=== PATIENT | female | born 1945 | race Caucasian/White ===

== ENCOUNTER → 2024-09-30 12:31 | Outpatient (REF) | payer MEDICARE, BC, SELFPAY | LOC: RCS 12:31 | PROVIDERS: ATTENDING PHYSICIAN Internal Medicine Cardiovascular Disease; FAMILY PHYSICIAN Nurse Practitioner Family | DX: I35.0 Nonrheumatic aortic (valve) stenosis (principal) | CPT/HCPCS: 93306; Q9950 ==

== ENCOUNTER → 2024-10-24 10:22 | Outpatient (REF) | payer MEDICARE, BC, SELFPAY ==
[2024-10-24 11:13] LABS: Hematocrit 36.7 % (37.0-47.0); Hemoglobin 12.3 g/dL (12.0-16.0); Mean Corp Hgb Conc. 33.5 g/dL (33.0-37.0); Mean Corpuscular Volume 87.8 fL (81.0-99.0); Nucleated Red Blood Cells % 0 %; Platelet Count 187 10^3/uL (130-400); Red Cell Dist. Width 12.8 % (11.5-14.5)
[2024-10-24 11:41] LABS: ALT (SGPT) 22 U/L (0-35); AST (SGOT) 27 U/L (14-36); Albumin 4.5 g/dl (3.5-5.0); Alkaline Phosphatase 60 U/L (38-126); Blood Urea Nitrogen 27 mg/dl (7-17); Calcium 9.8 mg/dl (8.4-10.2); Carbon Dioxide 29 mmol/L (22-30); Chloride 103 mmol/L (98-107); Glucose 123 mg/dl (70-99); Potassium 5.2 mmol/L (3.5-5.1); Sodium 139 mmol/L (135-145); Total Protein 8.0 g/dl (6.3-8.2); eGFR 42.35
== END ==
LOC: SDSPAT 10:22
PROVIDERS: ATTENDING PHYSICIAN Student in an Organized Health Care Education/Training Program; FAMILY PHYSICIAN Nurse Practitioner Family; OTHER PHYSICIAN Internal Medicine Cardiovascular Disease
DX: R94.39 Abnormal result of other cardiovascular function study (principal)
CPT/HCPCS: 36415; 80053; 85025; 93005

== ENCOUNTER 2024-10-25 08:28 | Day surgery (SDC) | payer MEDICARE, BC, SELFPAY ==
[2024-10-24 10:34] VITALS: BMI 37.7
[2024-10-25] VITALS (18 sets, daily range): BP systolic 87–186; BP diastolic 50–148; BMI 37.6
[2024-10-25] MEDS: NSS 288 ML IV (09:49)
[2024-10-25 11:57] LABS: ACT-LR - POC 255 Seconds (116-155)
--- NOTE | 2024-10-25 21:47 | ITS.CL.PN ---
Motors And Controls Tester - Procedure Note
Procedure
Procedure Note:
CARDIAC CATHETERIZATION REPORT
Date of Procedure: 10/25/2024
Referring: Dr. Daniel Concepcion MD
Indication: typical angina, positive cardiac stress test, known CAD
PROCEDURE(S)
1. left heart catheterization
2. bypass graft angiography
2. coronary angiography
4. iFR RCA
ACCESS: 6F left radial artery (closure: radial band)
CATHETERS
1. 6F ALVIN
2. 6F JR4
3. 6F JL4
MODERATE SEDATION: 45 minutes of moderate sedation was utilized. An independent medical management trainer was present to assist with and help manage the patient's level of consciousness and physiologic status.
HEMODYNAMIC DATA
LV 200/19 (EDP 23, a-wave to 35) mmHg
AO 198/66 (mean 118) mmHg
CORONARY ANGIOGRAPHY
Dominance: right
LM: Large with mild disease.
LAD: Large vessel giving rise to a large diagonal branch. The vessel is ostially occluded and supplied via the YOUSSEF which gives brisk retrograde flow back to the proximal LAD and fills the diagonal branch. However there appears to be subtotal
occlusion just distal to the touchdown of the YOUSSEF and there is competitive flow visualized distally correlating to [id number] collaterals seen from the RPDA.
LCx: Moderate caliber vessel giving rise to several small marginal branches and a moderate caliber distal marginal/LPL. At the site of a previously severe stenosis just after the third OM there is now only mild nonobstructive disease. There is only
mild diffuse disease otherwise.
RCA: Large vessel giving rise to a large RPDA and large RPL branch. There is diffuse mild disease and a focal 40% stenosis in the proximal aspect of the RPL. There are faint right to left collaterals seen to the apical LAD. The vessel is generally
unchanged compared to angiography prior to bypass.
BYPASS GRAFT ANGIOGRAPHY:
YOUSSEF-LAD: the YOUSSEF is taken as a pedicle and forms an anastomosis with the mid-LAD. Provides brisk retrograde flow to the proximal LAD and large diagonal branch.
SVG-RPL: assumed occluded (button not definitively identified but no competitive flow seen in RCA system)
SVG-OM: occluded
iFR of RCA
An Omni wire was flushed and zeroed outside the body and then advanced to the ostial RCA. The wire introducer was removed and the catheter flushed with saline, after which pressure of the wire and guide were normalized. The wire was advanced to the
distal RPL branch and iFR recorded at 0.94. iFR pullback was performed noting a focal pattern at the RPL stenosis. On return to the ostial RCA, iFR appropriately normalized to ~1.0, confirming lack of wire drift.
RADIATION: dose 488 mGy; DAP 32 Gy*cm2; fluoroscopy time 14.9 min
CONCLUSIONS
1. Coronary artery disease status post bypass with occluded SVG to OM and SVG to RPL, patent YOUSSEF to LAD with apical LAD STORAGE ADMINISTRATOR with right to left collaterals. The distal LAD stenosis explains her positive apical stress test result. She otherwise does
not have obstructive coronary disease. Curiously, her previously severe circumflex lesion now appears healed, explaining why the graft may have subsequently gone down. Her RCA lesion which was grafted is hemodynamically nonsignificant, also
explaining graft failure.
2. Severe systemic hypertension with moderately elevated LV filling pressure
RECOMMENDATIONS
1. Aggressive medical therapy for angina. Percutaneous revascularization of the apical LAD STORAGE ADMINISTRATOR would be high risk given necessity of traversing the YOUSSEF and of marginal benefit given the small territory supplied. Will start imdur.
2. Aggressive secondary prevention of coronary artery disease
Copy to: Dr. Daniel Concepcion MD (showcase trimmer); Renee Castañeda NP (PCP)
Signed: Reggie Smart MD, PhD
== END 2024-10-25 16:30 | disposition home or self-care (01) ==
LOC: CATH 08:28
PROVIDERS: ATTENDING PHYSICIAN Student in an Organized Health Care Education/Training Program; FAMILY PHYSICIAN Nurse Practitioner Family; OTHER PHYSICIAN Internal Medicine Cardiovascular Disease
DX: I25.118 Atherosclerotic heart disease of native coronary artery with other forms of angina pectoris (principal); I25.718 Atherosclerosis of autologous vein coronary artery bypass graft(s) with other forms of angina pectoris; I10 Essential (primary) hypertension; I25.82 Chronic total occlusion of coronary artery
CPT/HCPCS: 93799; 99153; 99152; 85347; 93459; C1769; C1894; Q9967

== ENCOUNTER 2025-02-08 09:56 | Emergency (ER) | payer MEDICARE, BC, SELFPAY ==
[2025-02-08 09:57] VITALS: BP 149/61
--- NOTE | 2025-02-08 11:13 | ED.GENMED ---
History of Present Illness
General
Chief Complaint: DVT/Possible Blood Clot
Source: patient
Time Seen by Provider: 02/08/25 10:53
History of Present Illness
History of Present Illness:
79-year-old female with past medical history of atrial fibrillation, previous [place], COPD, GERD presenting to the emergency department for evaluation of dull aching sensation to the back of her left calf that she noticed yesterday, continued into today
prompting her to come to the ER. She denies any trauma, increased exercise or injury, focal weakness or numbness, chest pain or shortness of breath. No history of similar. She is on Eliquis due to her history of atrial fibrillation and reports
good compliance with this. No other concerns.
Past History
Past History
ED Past Medical History: CAD, GERD and Other (Hemorrhoids); Negative IDDM or NIDDM
ED Past Surgical History: Cardiac (Stents), Cholecystectomy, Gynecological and Orthopedic
Social History
Tobacco: Former smoker
Alcohol: Occasional
Drug: None
Personal:
Living: with family
Employment: Retired
Family History
Family History: Other (Noncontributory)
Review of Systems
Review of Systems
All Other Systems: ROS reviewed and negative except as documented in HPI and ROS
Phy Exam
Physical Exam
Physical Exam:
GENERAL: Alert , in no apparent distress
HEAD: Normocephalic atraumatic
EYE: conjunctiva clear
NECK: Supple, no significant adenopathy.
ENT: o/p clr, mmm.
CARDIAC: Regular rate and rhythm
LUNGS: Clear breath sounds bilaterally, no acute respiratory distress, no wheezes/rales/rhonchi
NEUROLOGICAL: Alert and oriented
SKIN: Warm and dry, skin intact.
MUSCULOSKELETAL: well perfused. No obvious edema, erythema or focal areas of tenderness. Extremities warm well-perfused and neurovascularly intact, full range of motion
PSYCH: Normal and appropriate interaction.
Scores
Heart Failure Risk
Heart Failure Risk Score: Not Applicable
Heart Score for Chest Pain Patients
STEMI patient?: Not applicable
Withdrawal Assessment of Alcohol
Withdrawal Assessment Completed?: Not applicable
Course
Orders/Labs/Results
Orders:
Orders
02/08/25 10:18
US Periph Venous LOWER Ext LT Urgent
Reason For Exam: pain calf
Vital Signs
Initial and Last Documented VS:
Initial Vital Signs
Temp Pulse Resp BP Pulse Ox
97.4 F 58 16 149/61 99
02/08/25 09:57 02/08/25 09:57 02/08/25 09:57 02/08/25 09:57 02/08/25 09:57
Last Documented Vital Signs
Temp Pulse Resp BP Pulse Ox
97.4 F 58 16 149/61 99
02/08/25 09:57 02/08/25 09:57 02/08/25 09:57 02/08/25 09:57 02/08/25 12:13
MDM/Problems Addressed
Differential Diagnosis Includes:
DVT although much less likely given she is on Eliquis already
Muscle strain
Tendinitis
Electrolyte imbalance
peripheral vascular disease/peripheral arterial disease
MDM/Problems Addressed:
79-year-old female presenting to the ER for evaluation of mild left calf tenderness x 1 day. No specific injury. No focal or lateralizing symptoms. Exam reassuring. Will check ultrasound to rule out DVT. Reassessment following
*Radiology
Radiology exam reviewed: radiology read reviewed
*Pulse Oximetry
SaO2: 99
Oxygen Mode of Delivery: Room air
Patient hypoxic: no
*Critical Care Note
Total Time (30-74mins, 75-104mins- exclusive of procedures): Not Applicable
Patient Management
Escalation/DeEscalation of care consider admission/obs:
Ultrasound negative for DVT. Recommended compression, Tylenol as needed for pain and follow-up with primary care provider as needed. Discussed return precautions
ED Attending Note
-
Portions of this chart may have been created with voice recognition software.� Occasional wrong word or��sound alike� substitutions may have occurred due to the inherent limitations of voice recognition software.
Discharge Plan
Departure
Patient Disposition: Home (Routine Discharge)
Date of Disposition: 02/08/25
Time of Disposition: 12:13
Patient with high blood pressure during this ER visit?: Yes
Discharge Problem:
Pain of left calf
Instructions: Muscle strain - ED (DC)
Prescriptions:
No Action
esomeprazole magnesium [Nexium 24HR] 20 MG capsule,delayed release(DR/EC)
20 mg PO DAILY
levalbuterol tartrate 1 PUFF HFA aerosol inhaler
1 puff inhalation Q4HPRN PRN (Reason: cough/wheeze) Qty: 1 0RF
metoprolol tartrate 50 MG tablet
50 mg PO QPM
rosuvastatin 40 MG tablet
40 mg PO DAILY
metoprolol tartrate 25 MG tablet
25 mg PO DAILY
alprazolam 0.25 MG tablet
0.25 mg PO QPM
famotidine 20 MG tablet
20 mg PO DAILYPRN PRN (Reason: GERD)
valsartan 40 MG tablet
40 mg PO DAILY Qty: 30 3RF
Eliquis 5 MG tablet
5 mg PO BID Qty: 1 0RF
furosemide 80 mg Tablet
80 mg PO MOWEFR
furosemide 80 mg Tablet
40 mg PO TUTHSA
hydroxyzine pamoate 25 mg Capsule
25 mg PO QPM
ezetimibe 10 mg Tablet
10 mg PO DAILY
isosorbide mononitrate 30 mg tablet extended release 24 hr
30 mg PO DAILY Qty: 30 11RF
Referrals:
Renee Castañeda CRNP [Family Provider, Family Practice]
Interventions
Interventions:
*Risk Screen - Suicide Last Done: 02/08/25 09:57
*General Assessment Last Done: 02/08/25 09:57
*Neglect/Abuse Screening Last Done: 02/08/25 09:57
*Nursing Disposition Last Done: 02/08/25 12:16
ED- Cardiac Assessment Last Done: 02/08/25 10:08
ED- Pulmonary Assessment Last Done: 02/08/25 10:08
ED-Peripheral Vascular Assessment Last Done: 02/08/25 10:08
ED-Skin Assessment Last Done: 02/08/25 10:08
Discharge Date and Time
Discharge Date/Time: 02/08/25 12:17
Print Language: BURMESE
== END 2025-02-08 12:17 | disposition home or self-care (01) ==
LOC: EMR 09:56
PROVIDERS: EMERGENCY PHYSICIAN Emergency Medicine; FAMILY PHYSICIAN Nurse Practitioner Family
DX: M79.662 Pain in left lower leg (principal); I25.10 Atherosclerotic heart disease of native coronary artery without angina pectoris; I48.91 Unspecified atrial fibrillation; I25.2 Old myocardial infarction; J44.9 Chronic obstructive pulmonary disease, unspecified; K21.9 Gastro-esophageal reflux disease without esophagitis; Z79.01 Long term (current) use of anticoagulants; Z95.5 Presence of coronary angioplasty implant and graft; Z87.891 Personal history of nicotine dependence
CPT/HCPCS: 99284; 93971